=== PATIENT | female | born 1950 | race Caucasian/White ===

== ENCOUNTER 2016-11-16 22:31 | Emergency (ER) | payer OTHER ==
[~2016-11-16 22:31] MED LIST: ATIVAN0.5 M1 PO; B-1100 M1 PO; GABAPENTIN600 M2 PO; HYDROCODON-ACE1 EA16 PO; KEFLEX500 M4 PO; KEPPRA; KEPPRA500 M3 PO; KEPPRA750 M2 PO; LAMICTAL25 M2 PO; LAMOTRIGINE ER50 MG PO; LAMOTRIGINE25 M3 PO; LASIX20 MG PO; LEVOTHYROXINE125 MC1 PO; LEVOXYL125 MC1 PO; LEVOXYL200 MC1 PO; LORAZEPAM0.5 M1 PO; MACROBID 100 M100 M1 PO; NEURONTIN300 M1; NEURONTIN300 M1 PO; NEURONTIN300 MG PO; NEURONTIN600 M1 PO; NORCO 5-325 TA1 EACH PO; PANTOPRAZOLE SO40 M3 PO; POTASSIUM; PROTONIX40 M2 PO; SENEXON-S TABL1 EAC1 PO; SERTRALINE HCL100 M5 PO; SERTRALINE HCL50 M4 PO; SYNTHROID; SYNTHROID100 MC1 PO; SYNTHROID125 MC1 PO; THERAPEUTIC M1 EAC3 PO; TRAZODONE HCL100 M1 PO; VITAMIN C500 M3 PO; ZOFRAN4 M2 PO; ZOLOFT100 M1 PO; ZOLOFT50 M1 PO
== END 2016-11-17 05:17 ==
LOC: EDMED 22:31
DX: S00.11XA Contusion of right eyelid and periocular area, initial encounter (principal); S70.12XA Contusion of left thigh, initial encounter; W19.XXXA Unspecified fall, initial encounter
CPT/HCPCS: J1885

== ENCOUNTER 2017-01-13 11:31 | Observation (INO) | payer MEDICARE, OTHER ==
[2017-01-13 12:26] LABS: BASO % 0.5 % (0-2); EOS % 0.8 % (0-7); HCT-HEMATOCRIT 38.7 % (34.0-49.0); HGB-HEMOGLOBIN 12.8 gm/dl (12.0-15.5); LYMPH % 46.6 % (20-45); LYMPH ABSOLUTE COUNT 1.9 tho/cmm (0.8-4.5); MCH (MEAN CORPUSCULAR HGB) 33.7 pg (28.0-32.0); MCHC MEAN CORPUSCULAR HGB CONC 33.1 % (32.0-36.0); MCV (MEAN CELL VOLUME) 101.8 fl (82.0-96.0); MEAN PLATELET VOLUME 10.1 cmc (9.4-12.4); MONO % 8.8 % (0-12); MONOCYTE ABSOLUTE COUNT 0.4 tho/cmm (0.0-1.2); NEUTROPHIL ABSOLUTE COUNT 1.7 tho/cmm (1.6-8.0); NEUTROPHIL-AUTOMATED 1.7 tho/cmm (1.6-8.0); NEUTROPHILS % 43.3 % (40-80); PLATELET COUNT 171 tho/cmm (150-450); RED CELL DISTRIBUTION WIDTH 13.9 % (12.4-16.4)
[2017-01-13 12:45] LABS: ANION GAP 15 mmol/L (0-20); BLOOD UREA NITROGEN 10 mg/dl (6-24); CALCIUM 8.1 mg/dl (8.5-10.5); CARBON DIOXIDE-VENOUS 24 mmol/L (22-32); CHLORIDE 109 mmol/l (96-110); CREATININE 0.54 mg/dl (0.50-1.10); GLUCOSE 108 mg/dL (70-110); POTASSIUM 4.2 mmol/L (3.7-5.1); SODIUM 144 mmol/L (135-145); eGFR VALUE FOR BLACK >90 mL/Min
[2017-01-13 12:48] LABS: ALCOHOL (ETOH) 386 mg/dl (<10)
[2017-01-13 14:57] LABS: URINE BILIRUBIN NEGATIVE (NEG); URINE BLOOD NEGATIVE (NEG); URINE GLUCOSE (UA) NEGATIVE (NEG); URINE KETONE NEGATIVE (NEG); URINE LEUKOCYTE ESTERASE NEGATIVE (NEG); URINE NITRITE NEGATIVE (NEG); URINE PH 6.5 (5.0-8.0); URINE PROTEIN NEGATIVE (NEG); URINE SPECIFIC GRAVITY 1.005 (1.003-1.030)
[2017-01-13 14:59] LABS: URINE APPEARANCE HAZY; URINE COLOR YELLOW
[2017-01-13 16:02] LABS: INR 0.8 INR (0.9-1.1); PROTHROMBIN TIME 9.5 SECONDS (9.0-13.6)
[2017-01-13 16:17] LABS: ALBUMIN 3.7 g/dl (3.5-5.0); ALKALINE PHOSPHATASE 94 U/L (33-138); ALT/SGPT 30 U/L (12-78); AST/SGOT 34 U/L (10-40); BILIRUBIN,DIRECT 0.1 mg/dl (0.0-0.3); BILIRUBIN,INDIRECT 0.3 mg/dL (0.0-1.0); BILIRUBIN,TOTAL 0.4 mg/dl (0-1.5); PHOSPHOROUS 3.1 mg/dl (2.5-4.9)
[2017-01-13 16:24] LABS: ACETAMINOPHEN LEVEL <2.1 ug/ml (10-30); SALICYLATE <2.8 mg/dl (2.8-20)
[2017-01-14] MEDS ORDERED: FOLIC ACID1 M1 PO (10:49)
[2017-01-14] MEDS ORDERED: THIAMINE HCL100 M2 PO (10:50)
[2017-01-14] MEDS ORDERED: MULTIVITAMINS1 EAC6 PO (10:51)
== END 2017-01-14 12:25 ==
LOC: EDMED 11:31 → EMR2 15:28 → CAR1 18:15
PROVIDERS: Internal Medicine; Physician Assistant; ADMIT Hospitalist
DX: F10.229 Alcohol dependence with intoxication, unspecified (principal); R29.6 Repeated falls; E03.9 Hypothyroidism, unspecified; G40.909 Epilepsy, unspecified, not intractable, without status epilepticus; F32.9 Major depressive disorder, single episode, unspecified; G62.9 Polyneuropathy, unspecified; M41.9 Scoliosis, unspecified; M47.815 Spondylosis without myelopathy or radiculopathy, thoracolumbar region; M79.662 Pain in left lower leg; Z79.899 Other long term (current) drug therapy; Z98.890 Other specified postprocedural states; Y90.8 Blood alcohol level of 240 mg/100 ml or more
CPT/HCPCS: G0378; G0480; G8978-GP-CH; G8979-GP-CH; G8980-GP-CH; J2060; J7030; P9612